=== PATIENT | female | born 1945 | race Caucasian/White ===

== ENCOUNTER 2018-11-22 13:29 | Inpatient (IN) ==
[2018-11-22] MEDS ORDERED: Ondansetron ODT 4 MG TAB.RAPDIS SL ONE (13:34)
[2018-11-22] MEDS ORDERED: *HR* FentaNYL (PF) 100 MCG/2 ML VIAL IVP ONE (13:35)
--- NOTE | 2018-11-22 13:41 | Emergency Department Note ---
Disposition Clinical Impression: Hypercalcemia Abdominal pain Qualifiers: Abdominal location: unspecified location Qualified Code(s): R10.9 - Unspecified abdominal pain Chest pain Qualifiers: Chest pain type: unspecified Qualified Code(s): R07.9 - Chest pain, unspecified Disposition: Admitted As Inpatient Condition: Good Referrals: Vicky Prajapati MD [Primary Care Provider] - Time of Disposition: 15:37 General Adult HPI - General Stated complaint: Chest Pain / Nausea / Back Pain Time Seen by Provider: 11/22/18 13:31 Source: patient, family Mode of arrival: wheelchair Limitations: no limitations Nursing Notes Reviewed: Yes Vital Signs Reviewed: Yes - History of Present Illness HPI Narrative: 73-year-old female with significant past medical history of hypertension, hyperlipidemia and diabetes presenting to the emergency department chief complaint of nausea 3 days. Patient states for the past 3 days she has had sev ere nausea and some right upper and left upper quadrant abdominal pain. Patient has also had some mid substernal chest pressure. No radiation. No history of cardiac disease. No anticoagulation use. Constant pain. - Related Data Home Medications Medication Instructions Recorded Confirmed Duloxetine HCl 20 mg PO BID 11/22/18 11/22/18 HYDROcodone/Acet 5/325 mg [[place] 1 tab PO Q6H PRN 11/22/18 11/22/18 5-325 mg] NIFEdipine [Nifedipine ER] 30 mg PO DAILY 11/22/18 11/22/18 Olmesartan Medoxomil 40 mg PO DAILY 11/22/18 11/22/18 Probenecid [Benemid] 500 mg PO DAILY 11/22/18 11/22/18 Triamterene/HCTZ 37.5/25mg 1 each PO DAILY 11/22/18 11/22/18 [Dyazide] Allergies Allergy/AdvReac Type Severity Reaction Status Date / Time Aliskiren [From Tekturna] Allergy See Verified 02/03/15 10:20 Comments amlodipine [From Norvasc] Allergy Cough Verified 02/03/15 10:20 atorvastatin [From Lipitor] Allergy Weakness Verified 02/03/15 10:20 Hydralazine Allergy Fatigued Verified 02/03/15 10:20 Labetalol Allergy See Verified 02/03/15 10:20 Comments nebivolol [From Bystolic] Allergy See Verified 02/03/15 10:20 Comments simvastatin [From Zocor] Allergy Weakness Verified 02/03/15 10:20 allopurinol AdvReac See Verified 02/03/15 10:20 Comments doxazosin AdvReac Congested Verified 02/03/15 10:20 lisinopril AdvReac Cough Verified 02/03/15 10:20 metoprolol [From Toprol XL] AdvReac See Verified 02/03/15 10:20 Comments minoxidil AdvReac See Verified 02/03/15 10:20 Comments All systems ED: reviewed and negative except as stated. Constitutional: Denies: fever Eyes: Reports: as per HPI ENT ED: Reports: as per HPI Cardiovascular: Reports: chest pain Respiratory: Denies: dyspnea Gastrointestinal: Reports: abdominal pain, nausea Genitourinary: Reports: as per HPI Musculoskeletal: Reports: as per HPI Integumentary: Reports: as per HPI Neurological: Reports: as per HPI Psychiatric: Reports: as per HPI Endocrine: Reports: as per HPI Hematological/Lymphatic: Reports: as per HPI Allergic/Immunologic: Reports: as per HPI Past Medical History - Past Medical History Attestation: Yes The following information was validated with the patient. 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 Absent: respiratory distress, wheezes - Cardiovascular Cardiovascular exam: Present: regular rate, normal rhythm, normal heart sounds - Abdominal Exam Abdominal exam: Present: soft, tenderness. Absent: distention, guarding, rebound Abdominal tenderness: Present: RUQ, LUQ, moderate - Extremities Exam Extremities exam: Present: full ROM - Neurological Exam Neurological exam: Present: alert, oriented X3 - Psychiatric Psychiatric exam: Present: normal affect - Skin Skin exam: Present: warm Course Course Narrative: 73-year-old female presenting for nausea and chest pressure. In the room she is alert oriented 3. Hypertensive but hemodynamically stable. Physical exam is significant for right upper and left upper quadrant abdominal pain. Concern for cardiac versus intra-abdominal pathology at this time. We will obtain laboratory analysis, troponin, EKG and CT of the abdomen and pelvis. Disposition most likely admission the pending results. Patient agrees with this plan. - Reevaluation(s) Reevaluation #1: Patient laboratory analysis significant for hypercalcemia 13. Patient does state she takes 2-3 Tums per day but otherwise no calcium supplementation. CT of abdomen and pelvis negative. Chest x-ray negative. At this time will plan to admit the patient for chest pain rule out and further evaluation for her hypercalcemia. Patient remains alert and oriented 3 and hemodynamically stabl e. Patient agrees with this plan. I spoke to the hospitalist instructional manager Dr. Bingham who agrees to accept the patient at this time. He recommends 40 mEq of oral potassium. Vital Signs Temperature 98.6 F 11/22/18 13:34 Pulse Rate 96 11/22/18 13:34 Respiratory Rate 25 11/22/18 13:34 Blood Pressure 210/116 11/22/18 13:34 O2 Sat by Pulse Oximetry 96 11/22/18 13:34 Temperature 98.6 F 11/22/18 13:34 Pulse Rate 78 11/22/18 14:54 Respiratory Rate 18 11/22/18 14:54 Blood Pressure 160/103 11/22/18 14:54 O2 Sat by Pulse Oximetry 95 11/22/18 14:54 Oxygen Delivery Oxygen Delivery Room Air Medical Decision Making - Lab Data Result diagrams: 11/22/18 13:45 11/22/18 13:45 Lab Results 11/22/18 11/22/18 Range/Units 13:45 13:45 WBC 8.3 (4.3-11.1) K/mcL RBC 5.17 H (3.82-4.97) M/mcL Hgb 14.8 (11.5-15.4) g/dL Hct 43.7 (35.3-44.9) % MCV 84.5 (83.0-100.0) fL MCH 28.6 (28.0-33.3) pg MCHC 33.9 (31.6-35.5) g/dL RDW 12.5 (11.5-14.5) % Plt Count 298 (140-400) K/mcL MPV 8.8 L (9.4-12.4) fL Immature Gran % 0.5 (0-4) % Seg Neutrophils % 72.9 % Lymphocytes % 17.9 % Monocytes % 8.2 % Eosinophils % 0.1 % Basophils % 0.4 % Neutrophils # 6.1 (1.6-8.9) K/mcL Lymphocytes # 1.5 (0.6-4.6) K/mcL Monocytes # 0.7 (0.0-1.3) K/mcL Eosinophils # 0.0 (0.0-0.6) K/mcL Basophils # 0.0 (0.0-0.2) K/mcL Sodium 136 (136-145) mEq/L Potassium 3.3 L (3.5-5.1) mEq/L Chloride 95 L (98-107) mEq/L Carbon Dioxide 30 H (23-29) mEq/L BUN 19 (8-23) mg/dL Creatinine 1.20 (0.60-1.20) mg/dL Est GFR ( Amer) 54 L (> 60) Est GFR (Non-Af Amer) 44 L (> 60) BUN/Creatinine Ratio 16 (6-26) Glucose 158 H (70-105) mg/dL Calculated Osmolality 288 (280-300) Calcium 13.0 H* (8.6-10.3) mg/dL Total Bilirubin 0.5 (0.3-1.0) mg/dL Direct Bilirubin 0.1 (0.0-0.2) mg/dL Indirect Bilirubin 0.4 (0.0-1.2) mg/dL AST 13 (13-39) Units/L ALT 10 (7-52) Units/L Alkaline Phosphatase 66 (34-104) Units/L Troponin I < 0.03 (< 0.04) ng/mL Serum Total Protein 7.9 (6.4-8.9) g/dL Albumin 4.7 (3.5-5.7) g/dL Globulin 3.2 (2.4-3.5) g/dL Albumin/Globulin Ratio 1.5 (1.1-2.2) Lipase 38 (11-82) Units/L - EKG Data EKG #1 EKG attestation: Yes I reviewed and interpreted this EKG. EKG results narrative: Sinus tachycardia. 101 beats per minute. VA interval 185, QRS 114, QTC 500. Compared to previous EKG completed on 05/31/2011 new sinus tachycardia noted Heart Score - Score History: Slightly Suspicious EKG: Normal Age: Greater than 65 Risk Factors: Equal/Greater than 3 risk factor or history of atherosclerotic disease Troponin: Less than normal limit HEART Score Total: 4
[2018-11-22 14:02] LABS: Basophils % 0.4 %; Eosinophils % 0.1 %; Hematocrit 43.7 % (35.3-44.9); Hemoglobin 14.8 g/dL (11.5-15.4); Immature Granulocytes % 0.5 % (0-4); Lymphocytes # 1.5 K/mcL (0.6-4.6); Lymphocytes % 17.9 %; Mean Corpuscular HGB Conc 33.9 g/dL (31.6-35.5); Mean Corpuscular Hemoglobin 28.6 pg (28.0-33.3); Mean Corpuscular Volume 84.5 fL (83.0-100.0); Mean Platelet Volume 8.8 fL (9.4-12.4); Monocytes # 0.7 K/mcL (0.0-1.3); Monocytes % 8.2 %; Neutrophils # 6.1 K/mcL (1.6-8.9); Platelet Count 298 K/mcL (140-400); Red Blood Count 5.17 M/mcL (3.82-4.97); Red Cell Distribution Width 12.5 % (11.5-14.5); Segmented Neutrophils % 72.9 %; White Blood Count 8.3 K/mcL (4.3-11.1)
[2018-11-22 14:26] LABS: BUN/Creatinine Ratio 16 (6-26); Blood Urea Nitrogen 19 mg/dL (8-23); Carbon Dioxide 30 mEq/L (23-29); Chloride 95 mEq/L (98-107); Glucose 158 mg/dL (70-105); Potassium 3.3 mEq/L (3.5-5.1); Sodium 136 mEq/L (136-145); eGFR For African Americans 54 (> 60); eGFR For Non-African Americans 44 (> 60)
[2018-11-22 14:27] LABS: Alanine Aminotransferase 10 Units/L (7-52); Albumin 4.7 g/dL (3.5-5.7); Albumin/Globulin Ratio 1.5 (1.1-2.2); Alkaline Phosphatase 66 Units/L (34-104); Aspartate Amino Transferase 13 Units/L (13-39); Bilirubin,Direct 0.1 mg/dL (0.0-0.2); Bilirubin,Indirect 0.4 mg/dL (0.0-1.2); Bilirubin,Total 0.5 mg/dL (0.3-1.0); Globulin 3.2 g/dL (2.4-3.5); Lipase 38 Units/L (11-82); Osmolality,Calculated 288 (280-300); Total Protein 7.9 g/dL (6.4-8.9); Troponin I < 0.03 ng/mL (< 0.04)
[2018-11-22] MEDS ORDERED: 0.9 % Sodium Chloride 1,000 ML IVC ONE (14:28)
[2018-11-22] MEDS ORDERED: Aspirin 325 MG TABLET PO ONE (14:34)
--- NOTE | 2018-11-22 15:16 | Emergency Department Note ---
Disposition Clinical Impression: Hypercalcemia Abdominal pain Qualifiers: Abdominal location: unspecified location Qualified Code(s): R10.9 - Unspecified abdominal pain Chest pain Qualifiers: Chest pain type: unspecified Qualified Code(s): R07.9 - Chest pain, unspecified Disposition: Admitted As Inpatient Condition: Good Referrals: Vicky Prajapati MD [Primary Care Provider] - Time of Disposition: 15:25 General Adult HPI - General Chief complaint: ED Abdominal Pain Stated complaint: Chest Pain / Nausea / Back Pain Time Seen by Provider: 11/22/18 13:31 Source: patient, family Mode of arrival: wheelchair Limitations: no limitations Nursing Notes Reviewed: Yes Vital Signs Reviewed: Yes - History of Present Illness Pain Scale: 7 - Related Data Home Medications Medication Instructions Recorded Confirmed Duloxetine HCl 20 mg PO BID 11/22/18 11/22/18 HYDROcodone/Acet 5/325 mg [[place] 1 tab PO Q6H PRN 11/22/18 11/22/18 5-325 mg] NIFEdipine [Nifedipine ER] 30 mg PO DAILY 11/22/18 11/22/18 Olmesartan Medoxomil 40 mg PO DAILY 11/22/18 11/22/18 Probenecid [Benemid] 500 mg PO DAILY 11/22/18 11/22/18 Triamterene/HCTZ 37.5/25mg 1 each PO DAILY 11/22/18 11/22/18 [Dyazide] Allergies Allergy/AdvReac Type Severity Reaction Status Date / Time Aliskiren [From Tekturna] Allergy See Verified 02/03/15 10:20 Comments amlodipine [From Norvasc] Allergy Cough Verified 02/03/15 10:20 atorvastatin [From Lipitor] Allergy Weakness Verified 02/03/15 10:20 Hydralazine Allergy Fatigued Verified 02/03/15 10:20 Labetalol Allergy See Verified 02/03/15 10:20 Comments nebivolol [From Bystolic] Allergy See Verified 02/03/15 10:20 Comments simvastatin [From Zocor] Allergy Weakness Verified 02/03/15 10:20 allopurinol AdvReac See Verified 02/03/15 10:20 Comments doxazosin AdvReac Congested Verified 02/03/15 10:20 lisinopril AdvReac Cough Verified 11/17/15 10:20 metoprolol [From Toprol XL] AdvReac See Verified 02/03/15 10:20 Comments minoxidil AdvReac See Verified 02/03/15 10:20 Comments Constitutional: Denies: fever Eyes: Reports: as per HPI ENT ED: Reports: as per HPI Cardiovascular: Reports: chest pain Respiratory: Denies: dyspnea Gastrointestinal: Reports: abdominal pain, nausea Genitourinary: Reports: as per HPI Musculoskeletal: Reports: as per HPI Integumentary: Reports: as per HPI Neurological: Reports: as per HPI Psychiatric: Reports: as per HPI Endocrine: Reports: as per HPI Hematological/Lymphatic: Reports: as per HPI Allergic/Immunologic: Reports: as per HPI Past Medical History - Past Medical History Medical history: Reports: hyperlipidemia, hypertension Surgical history: Reports: no surgical history Psychiatric history: Reports: no psych history 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 history - Social History Smoking Status: Never smoker Alcohol use: Reports: none Drug use: Reports: none Physical Exam - General Limitations: no limitations General appearance: alert, in no apparent distress Course Vital Signs Temperature 98.6 F 11/22/18 13:34 Pulse Rate 96 11/22/18 13:34 Respiratory Rate 25 11/22/18 13:34 Blood Pressure 210/116 11/22/18 13:34 O2 Sat by Pulse Oximetry 96 11/22/18 13:34 Temperature 98.6 F 11/22/18 13:34 Pulse Rate 78 11/22/18 14:54 Respiratory Rate 18 11/22/18 14:54 Blood Pressure 160/103 11/22/18 14:54 O2 Sat by Pulse Oximetry 95 11/22/18 14:54 Oxygen Delivery Oxygen Delivery Room Air Medical Decision Making - Lab Data Result diagrams: 11/22/18 13:45 11/22/18 13:45 Lab Results 11/22/18 11/22/18 Range/Units 13:45 13:45 WBC 8.3 (4.3-11.1) K/mcL RBC 5.17 H (3.82-4.97) M/mcL Hgb 14.8 (11.5-15.4) g/dL Hct 43.7 (35.3-44.9) % MCV 84.5 (83.0-100.0) fL MCH 28.6 (28.0-33.3) pg MCHC 33.9 (31.6-35.5) g/dL RDW 12.5 (11.5-14.5) % Plt Count 298 (140-400) K/mcL MPV 8.8 L (9.4-12.4) fL Immature Gran % 0.5 (0-4) % Seg Neutrophils % 72.9 % Lymphocytes % 17.9 % Monocytes % 8.2 % Eosinophils % 0.1 % Basophils % 0.4 % Neutrophils # 6.1 (1.6-8.9) K/mcL Lymphocytes # 1.5 (0.6-4.6) K/mcL Monocytes # 0.7 (0.0-1.3) K/mcL Eosinophils # 0.0 (0.0-0.6) K/mcL Basophils # 0.0 (0.0-0.2) K/mcL Sodium 136 (136-145) mEq/L Potassium 3.3 L (3.5-5.1) mEq/L Chloride 95 L (98-107) mEq/L Carbon Dioxide 30 H (23-29) mEq/L BUN 19 (8-23) mg/dL Creatinine 1.20 (0.60-1.20) mg/dL Est GFR ( Amer) 54 L (> 60) Est GFR (Non-Af Amer) 44 L (> 60) BUN/Creatinine Ratio 16 (6-26) Glucose 158 H (70-105) mg/dL Calculated Osmolality 288 (280-300) Calcium 13.0 H* (8.6-10.3) mg/dL Total Bilirubin 0.5 (0.3-1.0) mg/dL Direct Bilirubin 0.1 (0.0-0.2) mg/dL Indirect Bilirubin 0.4 (0.0-1.2) mg/dL AST 13 (13-39) Units/L ALT 10 (7-52) Units/L Alkaline Phosphatase 66 (34-104) Units/L Troponin I < 0.03 (< 0.04) ng/mL Serum Total Protein 7.9 (6.4-8.9) g/dL Albumin 4.7 (3.5-5.7) g/dL Globulin 3.2 (2.4-3.5) g/dL Albumin/Globulin Ratio 1.5 (1.1-2.2) Lipase 38 (11-82) Units/L Attestation Statement - Attestation Attestation: I examined this patient and my medical decision-making was reviewed with the Resident Physician. I agree with the documented findings, disposition and treatment plan as described except to the extent set forth below. Patient presents to the ED with a chief complaint of pain between her shoulder blades. Nausea. Some chest discomfort. The symptoms of been present for 5 day s. Some pain in her right upper abdomen. No traumatic injury. On examination the patient is awake and alert sitting up in bed in no acute distress. She has no tenderness over her back. Her lungs are clear. Her heart is regular rate and rhythm. Her abdomen is soft with some right upper quadrant tenderness without guarding. Plan. Cardiac workup with CT abdomen pelvis. CT reviewed. No acute process. Patient has hypercalcemia. She is admitted for further workup and treatment of this along with further workup of her chest pain. Patient was given IV hydration. Abdomen/Pelvis CT 11/22/18 13:34 IMPRESSION: 1. No acute finding in the abdomen or pelvis to account for patient's abdominal pain. 2. Sigmoid diverticulosis without evidence of diverticulitis. 3. No evidence of obstructive uropathy. 4. Hepatic steatosis. D/ / 11/22/2018 14:22:06 Des Collins MD / marielos Interpreting Provider: Des Collins MD Chest X-Ray 11/22/18 13:35 IMPRESSION: Linear atelectasis or scarring in the left lung base. No other acute cardiopulmonary findings. D/ / Ramya Knight MD / Ramya Knight MD Interpreting Provider: Ramya Knight MD
[2018-11-22] MEDS: Potassium Chloride Elixir 20 MEQ/15 ML UDC PO ONE ×2 (16:03→16:06)
[2018-11-22] MEDS ORDERED: Naloxone 0.4 MG/ML INJ IVP PRN (16:26)
--- NOTE | 2018-11-22 16:26 | Electrocardiograph Report ---
[address] [address] Test Date: 2018-11-22 Pat Name: Geoffrey Chen Department: EXAM16 Room: 3B Gender: F Glassie: : 1945 Requested By: Katlyn Munoz Order Number: [id number] Reading MD: Jese Dee Measurements Intervals [place] Rate: 101 P: 53 [place]: 185 QRS: -80 QRSD: 114 T: 20 QT: 387 QTc: 500 Interpretive Statements Sinus tachycardia Consider right atrial enlargement Borderline IVCD Electronically Signed On 11-22-2018 16:25:09 EDT by Jese Dee
--- NOTE | 2018-11-22 16:40 | Internal Med History&Physical ---
Date of Encounter: 11/22/18 Time of Encounter: 16:45 Internal Medicine - H&P: HPI Chief complaint: Pain in the upper back Admitted From: Emergency Dept Plans for Post Hospital Care: Home History of present illness: Ms. Chen is a 73 year old female with the [facility] signifcnat for the hypertension , presented to the [facility] with the complaints of pain in the upper back. Pt has been having pain in the joints for almost 1 year. She has been to welding machine operator gas metal arc, diagnosed with gout currently on probenecid. Now she has been h aving pain between her shoulder blades for last 1 day, progressively worseinng, no aggravating or relieving factotrs. Does any chest pain, shortness of breath. Denies fever, chills, rigors. Denies cough, phlegm production. Denies dysuria, hematuria, nocturia. Denies any history of kidney stones. Denies any history of cancer. Denied any history of previous autoimmune disease. she mentioned that she had workup done by a welding machine operator gas metal arc and it was negative for any autoimmune disease. Denies taking any over the counter calcium other than Tums as needed for the abdominal pain. In the emergency department patient was hemodynamically stable. EKG was negative for an ischemic changes. Laboratory workup showed calcium of 13. Patient was given IV fluid bolus and was admitted for further management. Of note, patient troponin levels are normal. Past Med Surg Social Fam HX - Past Medical History Medical history: hyperlipidemia, hypertension Psychiatric history: no psych history - Past Surgical History Surgical History: no surgical history - Social History Smoking Status: Never smoker Alcohol use: none Drug use: none - Family History Father Living Status: Hx Family Cancer: Yes - Additional Family History Additional family history: Brother of pancreatic CA Internal Medicine - H&P: Meds Duloxetine HCl 20 mg PO BID 11/22/18 [History] HYDROcodone/Acet 5/325 mg [[place] 5-325 mg] 1 tab PO Q6H PRN 11/22/18 [History] NIFEdipine [Nifedipine ER] 30 mg PO DAILY 11/22/18 [History] Olmesartan Medoxomil 40 mg PO DAILY 11/22/18 [History] Probenecid [Benemid] 500 mg PO DAILY 11/22/18 [History] Triamterene/HCTZ 37.5/25mg [Dyazide] 1 each PO DAILY 11/22/18 [History] Allergy/AdvReac Type Severity Reaction Status Date / Time Aliskiren [From Tekturna] Allergy See Verified 02/03/15 10:20 Comments amlodipine [From Norvasc] Allergy Cough Verified 02/03/15 10:20 atorvastatin [From Lipitor] Allergy Weakness Verified 02/03/15 10:20 Hydralazine Allergy Fatigued Verified 02/03/15 10:20 Labetalol Allergy See Verified 02/03/15 10:20 Comments nebivolol [From Bystolic] Allergy See Verified 02/03/15 10:20 Comments simvastatin [From Zocor] Allergy Weakness Verified 02/03/15 10:20 allopurinol AdvReac See Verified 02/03/15 10:20 Comments doxazosin AdvReac Congested Verified 02/03/15 10:20 lisinopril AdvReac Cough Verified 02/03/15 10:20 metoprolol [From Toprol XL] AdvReac See Verified 02/03/15 10:20 Comments minoxidil AdvReac See Verified 02/03/15 10:20 Comments All Systems PM: A 10-system review of systems was performed and is negative for pertinent findings except as documented above in the HPI. Review of systems: General: Negative for fever, chills, rigors. Positive for generazlied weakness HEENT: Negative for neck swelling, discharge from nose, discharge from ears. EYES: Negative for any discharge from the eyes. Respiratory: Negative for shortness of breath, orthopnea, exertional dyspnea. Cardiovascular: Negative for chest pain, shortness of breath, orthopnea, PND. Gastrintestical: Negative for diarrhea, constipation, blood in stools. Genitourinary: Negative for dysuria, hematuria, nocturia, increased frequency of urine. Hematological: Negative for blood loss, negative for active cancer. Neurological: Negative for headache, dizziness, blurry vision, loss os power and sensations. Endocrinology: Negative for constipation, polyuria, polydipsia. Integumentary: Negative for rash, wounds, ulcers. Psychiatric: Negative for anxiety or depression. - Constitutional Vitals: Temp Pulse Resp BP Pulse Ox 98.6 F 78 18 190/76 95 11/22/18 13:34 11/22/18 14:54 11/22/18 16:03 11/22/18 16:03 11/22/18 14:54 Exam: General: Alert and oriented, no physical distress, able to follow commands. HEENT: No thyromegaly, no lymphadenopathy, no discharge. Eyes: No discharge. Normal conjuctiva, no icterus Respiratory: Normal vesicular breathing, no added sounds, breathing equal in both sides. CVS: Normal heart sounds, no murmurs, regular rhthm, no edema Extremities: No peripheral edema, peripheral pulses intact. Lymph nodes: No lymphadenopathy Gastrointestinal: Soft, nontender abdomen, normal abdominal sounds. No distent ion noted. Genitourinary: No paravertebral tenderness. Skin: No rash, ulcers or wound. Neurological: Alert and oriented. No focal deficits. Cranial nerves II-XII intact. Internal Med - H&P Results - Labs CBC & Chem 7: 11/22/18 13:45 11/22/18 13:45 Labs: Short CBC 11/22/18 Range/Units 13:45 WBC 8.3 (4.3-11.1) K/mcL Hgb 14.8 (11.5-15.4) g/dL Hct 43.7 (35.3-44.9) % Plt Count 298 (140-400) K/mcL Neutrophils # 6.1 (1.6-8.9) K/mcL BMP 11/22/18 13:45 Sodium 136 Potassium 3.3 L Chloride 95 L Carbon Dioxide 30 H BUN 19 Creatinine 1.20 Glucose 158 H Calcium 13.0 H* Cardiac Enzymes 11/22/18 Range/Units 13:45 Troponin I < 0.03 (< 0.04) ng/mL Liver Function 11/22/18 Range/Units 13:45 Total Bilirubin 0.5 (0.3-1.0) mg/dL Direct Bilirubin 0.1 (0.0-0.2) mg/dL AST 13 (13-39) Units/L ALT 10 (7-52) Units/L Alkaline Phosphatase 66 (34-104) Units/L Albumin 4.7 (3.5-5.7) g/dL - Impressions ITS Impressions Abdomen/Pelvis CT 11/22/18 13:34 IMPRESSION: 1. No acute finding in the abdomen or pelvis to account for patient's abdominal pain. 2. Sigmoid diverticulosis without evidence of diverticulitis. 3. No evidence of obstructive uropathy. 4. Hepatic steatosis. D/ / 11/22/2018 14:22:06 Des Collins MD / [email or web address] Interpreting Provider: Des Collins MD Chest X-Ray 11/22/18 13:35 IMPRESSION: Linear atelectasis or scarring in the left lung base. No other acute cardiopulmonary findings. D/ / Ramya Knight MD / Ramya Knight MD Interpreting Provider: Ramya Knight MD - Assessment and Plan (1) Hypercalcemia Current Visit: Yes Status: Acute Assessment and plan: Etiology unclear. On the previous review of labs, patient calcium was elevated but was in 10s Current calcium is 13. She was given 1 L of IV fluid bolus in the emergency department in Continued the patient on IV fluids. Repeat Calcium levels Check parathyroid hormone levels, vitamin D levels, uric acid, SPEP, hearing calcium, inflammatory markers. We will check CT scan of the chest to rule out any malignancy considering very high calcium levels. (2) Hypokalemia Current Visit: Yes Status: Acute Assessment and plan: Potassium of 3.3. Repleted. Recheck levels tomorrow. (3) Abdominal pain Current Visit: Yes Status: Acute Assessment and plan: Etiology unclear. CT scan of the abdomen was done which was negative for any abdominal mass or kidney stones. Could be related to hypercalcemia Continue to monitor. Qualifiers: Abdominal location: generalized Qualified Code(s): R10.84 - Generalized abdominal pain (4) Chest pain Current Visit: Yes Status: Acute Assessment and plan: Unlikely to be cardiac in nature. Troponin levels were normal. EKG negative. Repeat troponin level to rule out ACS. echo ordered. Qualifiers: Chest pain type: unspecified Qualified Code(s): R07.9 - Chest pain, unspecified (5) Hypertension Current Visit: Yes Status: Acute Assessment and plan: History of essential hypertension currently on medications. Resume home medications. Ordered PO clondiien as needed for blood pressure above 180 as the patient blood pressure has been high in the hospital. Could be related to hypercalcemia. Qualifiers: Hypertension type: essential hypertension Qualified Code(s): I10 - Essential (primary) hypertension (6) DVT prophylaxis Current Visit: Yes Status: Acute Assessment and plan: SUbq heparin (7) Gout Current Visit: Yes Status: Acute Assessment and plan: Hx of gout Check uric acid levesl Cont probenecid Qualifiers: Gout site: unspecified site Gout etiology: unspecified cause Chronicity: chronic Presence of tophus: without tophus Qualified Code(s): M1A.9XX0 - Chronic gout, unspecified, without tophus (tophi) - Time Spent With Patient Total time spent is greater than 50% in coordination of care (as documented) at patient's floor/unit and/or counseling patient:
[2018-11-22] MEDS: 0.9 % Sodium Chloride 1,000 ML IVC SCH (17:16)
[2018-11-22 17:52] LABS: VBG Ionized Calcium 1.47 mmol/L (1.15-1.35)
[2018-11-22 18:01] LABS: Troponin I 0.03 ng/mL (< 0.04)
[2018-11-22] MEDS: *HR* Heparin 5,000 UNIT/ML VIAL SQ SCH (18:51)
[2018-11-22] MEDS: *HR* HYDROcodone/Acet 5/325 mg TABLET PO PRN (18:55)
[2018-11-22 22:05] LABS: Bilirubin,Urine Negative (Negative); Blood,Urine Negative (Negative); Clarity,Urine Clear (Clear); Color,Urine Yellow (Yellow); Glucose,Urine (UA) Normal (Normal); Ketones,Urine Negative (Negative); Leukocyte Esterase,Urine Small (Negative); Nitrite,Urine Negative (Negative); PH,Urine 6.5 pH Units (5.0-8.0); Protein,Urine Negative (Neg-Trace); Specific Gravity,Urine 1.016 (1.010-1.025); Urobilinogen,Urine Normal (Normal)
[2018-11-22 22:08] LABS: Bacteria,Urine None Seen per hpf (None-Few); Hyaline Casts,Urine None Seen per lpf (None-Few); Squamous Epithelial Cell,Urine Many per lpf (None-Few)
[2018-11-23] MEDS: *HR* HYDROcodone/Acet 5/325 mg TABLET PO PRN ×4 (01:18→21:02)
[2018-11-23 04:53] LABS: Basophils % 0.6 %; Eosinophils % 0.6 %; Hematocrit 35.1 % (35.3-44.9); Hemoglobin 11.9 g/dL (11.5-15.4); Immature Granulocytes % 0.4 % (0-4); Lymphocytes # 1.6 K/mcL (0.6-4.6); Lymphocytes % 33.5 %; Mean Corpuscular HGB Conc 33.9 g/dL (31.6-35.5); Mean Corpuscular Volume 85.6 fL (83.0-100.0); Monocytes # 0.5 K/mcL (0.0-1.3); Monocytes % 10.6 %; Neutrophils # 2.6 K/mcL (1.6-8.9); Platelet Count 224 K/mcL (140-400); Red Cell Distribution Width 12.6 % (11.5-14.5); Segmented Neutrophils % 54.3 %; White Blood Count 4.8 K/mcL (4.3-11.1)
[2018-11-23 05:13] LABS: BUN/Creatinine Ratio 16 (6-26); Blood Urea Nitrogen 16 mg/dL (8-23); Calcium 10.8 mg/dL (8.6-10.3); Carbon Dioxide 28 mEq/L (23-29); Chloride 103 mEq/L (98-107); Glucose 98 mg/dL (70-105); Magnesium 1.2 mg/dL (1.6-2.6); Osmolality,Calculated 287 (280-300); Potassium 3.5 mEq/L (3.5-5.1); Sodium 138 mEq/L (136-145); eGFR For African Americans > 60 (> 60); eGFR For Non-African Americans 55 (> 60)
[2018-11-23] MEDS: 0.9 % Sodium Chloride 1,000 ML IVC SCH ×2 (07:01→17:22)
[2018-11-23] MEDS: *HR* Heparin 5,000 UNIT/ML VIAL SQ SCH ×2 (07:34→16:08)
[2018-11-23] MEDS: NIFEdipine XL (24 HR) 30 MG TAB.ER.24 PO SCH (07:35)
[2018-11-23] MEDS: Ondansetron 4 MG/2 ML VIAL IVP PRN (09:33)
--- NOTE | 2018-11-23 10:06 | Internal Med Progress Note ---
Hospitalist Progress Note - Encounter Date of Encounter: 11/23/18 Time of Encounter: 09:50 - Subjective Interval History: Patient seen at bedside. Complaining of mild nausea. Also complaining of constipation, although had a bowel movement in the morning. Denies any chest pain or shortness of breath. Denies fever, chills, rigors. Discussed with her and the that her calcium levels are improving. Discussed echocardiographic findings and mentioned that it is worthwhile to get the stress test. Agreeable to getting a stress test. - Exam Vitals: Temp Pulse Resp BP Pulse Ox 98.8 F 58 20 178/83 96 11/23/18 07:35 11/23/18 07:35 11/23/18 07:35 11/23/18 07:35 11/23/18 07:35 Exam: General: Alert and oriented, no physical distress, able to follow commands. HEENT: No thyromegaly, no lymphadenopathy, no discharge. Eyes: No discharge. Normal conjuctiva, no icterus Respiratory: Normal vesicular breathing, no added sounds, breathing equal in both sides. CVS: Normal heart sounds, no murmurs, regular rhthm, no edema Extremities: No peripheral edema, peripheral pulses intact. Lymph nodes: No lymphadenopathy Gastrointestinal: Soft, nontender abdomen, normal abdominal sounds. No distention noted. Genitourinary: No paravertebral tenderness. Skin: No rash, ulcers or wound. Neurological: Alert and oriented. No focal deficits. Cranial nerves II-XII intact. - Assessment and Plan (1) Hypercalcemia Current Visit: Yes Status: Acute Assessment and Plan: Etiology unclear. On the previous review of labs, patient calcium was elevated but was in 10s Calcium at presentation was 13, today it is 10.8. currently on IV fluids at 100 mL per hour. Parathyroid hormone level 13. Vitamin D level of 45. TSH normal. SPEP results pending. CT scan of the chest is normal. Could be related to ingestion of vitamin D?? Other possibility could be Use of HCTZ WIll cotninue the IV fluids at reduced rate Will hold vitamin D WIll dc HCTZ on discharge Repat levels on outpt basis (2) Hypokalemia Current Visit: Yes Status: Acute Assessment and Plan: REsolved Potassium normal today (3) Abdominal pain Current Visit: Yes Status: Acute Assessment and Plan: Etiology unclear. CT scan of the abdomen was done which was negative for any abdominal mass or kidney stones. Could be related to hypercalcemia Miralax for constipation Zofran for the nausea (4) Chest pain Current Visit: Yes Status: Acute Assessment and Plan: Etiology unlcear Troponin levels were normal x 2 EKG negative. Echocardiogram showed normal ejection fraction, asymmetric hypertrophy of the basal septum, atypical septal motion consistent with bundle branch block. Order stress test to rule out CAD. Nothing by mouth after midnight. (5) Hypertension Current Visit: Yes Status: Acute Assessment and Plan: History of essential hypertension currently on medications. Resume home medications. Ordered PO clondiien as needed for blood pressure above 180 as the patient blood pressure has been high in the hospital. Could be related to hypercalcemia. (6) DVT prophylaxis Current Visit: Yes Status: Acute Assessment and Plan: SUbq heparin (7) Gout Current Visit: Yes Status: Acute Assessment and Plan: Hx of gout Check uric acid levesl Cont probenecid (8) Hypomagnesemia Current Visit: Yes Status: Acute Assessment and Plan: MAg of 1.2 Repleted Repeat leves tomorrrow - Time Spent with Patient Total time spent is greater than 50% in coordination of care (as documented) at patient's floor/unit and/or counseling patient: Internal Medicine: Result - Labs CBC & Chem 7: 11/23/18 04:30 11/23/18 04:30 Labs: Short CBC 11/22/18 11/23/18 Range/Units 13:45 04:30 WBC 8.3 4.8 (4.3-11.1) K/mcL Hgb 14.8 11.9 D (11.5-15.4) g/dL Hct 43.7 35.1 L (35.3-44.9) % Plt Count 298 224 (140-400) K/mcL Neutrophils # 6.1 2.6 (1.6-8.9) K/mcL BMP 11/22/18 11/22/18 11/23/18 13:45 17:25 04:30 Sodium 136 138 Potassium 3.3 L 3.5 Chloride 95 L 103 Carbon Dioxide 30 H 28 BUN 19 16 Creatinine 1.20 0.99 Glucose 158 H 98 Calcium 13.0 H* 12.0 H 10.8 H Cardiac Enzymes 11/22/18 11/22/18 Range/Units 13:45 17:25 Troponin I < 0.03 0.03 (< 0.04) ng/mL Liver Function 11/22/18 Range/Units 13:45 Total Bilirubin 0.5 (0.3-1.0) mg/dL Direct Bilirubin 0.1 (0.0-0.2) mg/dL AST 13 (13-39) Units/L ALT 10 (7-52) Units/L Alkaline Phosphatase 66 (34-104) Units/L Albumin 4.7 (3.5-5.7) g/dL Urine 11/22/18 Range/Units 21:53 Urine Color Yellow (Yellow) Urine Clarity Clear (Clear) Urine pH 6.5 (5.0-8.0) pH Units Ur Specific [place] 1.016 (1.010-1.025) Urine Protein Negative (Neg-Trace) mg/dL Urine Glucose (UA) Normal (Normal) mg/dL - Impressions Impressions Abdomen/Pelvis CT 11/22/18 13:34 IMPRESSION: 1. No acute finding in the abdomen or pelvis to account for patient's abdominal pain. 2. Sigmoid diverticulosis without evidence of diverticulitis. 3. No evidence of obstructive uropathy. 4. Hepatic steatosis. D/ / 11/22/2018 14:22:06 Des Collins MD / marielos Interpreting Provider: Des Collins MD Chest X-Ray 11/22/18 13:35 IMPRESSION: Linear atelectasis or scarring in the left lung base. No other acute cardiopulmonary findings. D/ / Ramya Knight MD / Ramya Knight MD Interpreting Provider: Ramya Knight MD Echocardiogram 11/22/18 16:30 Impressions: LVEF 60-65%. Normal LV chamber size and function. Mild asymmetric hypertrophy of the basal septum. Mild left ventricular diastolic dysfunction. Atypical septal motion consistent with bundle branch block. Normal right ventricular structure and function. No evidence of pulmonary hypertension. No significant valvular dysfunction. Left Ventricular Wall Motion: Rest Echo Findings All wall segments showed normal motion. Findings: Study Quality * Technically adequate exam. ECG Findings * Sinus rhythm with BBB. Left Ventricle * LVEF 60-65%. * Normal LV chamber size and function. * Mild asymmetric hypertrophy of the basal septum. * Mild left ventricular diastolic dysfunction. * Atypical septal motion consistent with bundle branch block. Right Ventricle * Normal right ventricular structure and function. Left Atrium * Normal left atrial size. Right Atrium * Normal right atrial size. Interatrial Septum * Interatrial septum not well evaluated. Aortic Valve * Trileaflet aortic valve. * Mildly sclerotic aortic valve leaflets. * No aortic regurgitation. * No aortic stenosis. Mitral Valve * Mild mitral annular calcification * No mitral regurgitation. * No mitral stenosis. Tricuspid Valve * Normal tricuspid valve structure and function. * Trace tricuspid regurgitation. * No evidence of pulmonary hypertension. Pulmonic Valve * Normal pulmonic valve structure and function. * No pulmonic regurgitation. Aorta * Normally sized aortic root. Pericardium * The pericardium appears normal. IVC * Normal IVC dimensions and inspiratory collapse. Pulmonary Artery * Normal visualized portions of the main pulmonary artery. Chest CT 11/22/18 17:52 IMPRESSION: No acute or suspicious intrathoracic process. D/ / Marie Maciel Cha, MD / Marie Maciel Cha, MD Interpreting Provider: Marie Maciel Cha, MD Consult Discharge Plan - Plan Referrals: Vicky Prajapati MD [Primary Care Provider] - (3) Abdominal pain Qualifiers: Abdominal location: generalized Qualified Code(s): R10.84 - Generalized abdominal pain (4) Chest pain Qualifiers: Chest pain type: unspecified Qualified Code(s): R07.9 - Chest pain, unspecified (5) Hypertension Qualifiers: Hypertension type: essential hypertension Qualified Code(s): I10 - Essential (primary) hypertension (7) Gout Qualifiers: Gout site: unspecified site Gout etiology: unspecified cause Chronicity: chronic Presence of tophus: without tophus Qualified Code(s): M1A.9XX0 - Chronic gout, unspecified, without tophus (tophi)
[2018-11-24] MEDS: Ondansetron 4 MG/2 ML VIAL IVP PRN ×2 (01:50→23:09)
[2018-11-24] MEDS: cloNIDine HCl 0.1 MG TABLET PO PRN ×2 (03:16→11:44)
[2018-11-24] MEDS: *HR* HYDROcodone/Acet 5/325 mg TABLET PO PRN ×3 (03:16→19:43)
[2018-11-24 05:19] LABS: Basophils % 0.4 %; Eosinophils % 0.9 %; Hematocrit 35.6 % (35.3-44.9); Hemoglobin 12.2 g/dL (11.5-15.4); Immature Granulocytes % 0.2 % (0-4); Lymphocytes # 1.3 K/mcL (0.6-4.6); Lymphocytes % 27.9 %; Mean Corpuscular HGB Conc 34.3 g/dL (31.6-35.5); Mean Corpuscular Hemoglobin 29.3 pg (28.0-33.3); Mean Corpuscular Volume 85.6 fL (83.0-100.0); Monocytes # 0.5 K/mcL (0.0-1.3); Monocytes % 9.9 %; Neutrophils # 2.8 K/mcL (1.6-8.9); Platelet Count 230 K/mcL (140-400); Red Blood Count 4.16 M/mcL (3.82-4.97); Red Cell Distribution Width 12.5 % (11.5-14.5); Segmented Neutrophils % 60.7 %; White Blood Count 4.6 K/mcL (4.3-11.1)
[2018-11-24 05:23] LABS: VBG Ionized Calcium 1.41 mmol/L (1.15-1.35)
[2018-11-24 05:38] LABS: BUN/Creatinine Ratio 17 (6-26); Blood Urea Nitrogen 17 mg/dL (8-23); Calcium 10.6 mg/dL (8.6-10.3); Carbon Dioxide 28 mEq/L (23-29); Chloride 104 mEq/L (98-107); Glucose 127 mg/dL (70-105); Magnesium 1.5 mg/dL (1.6-2.6); Osmolality,Calculated 289 (280-300); Potassium 3.3 mEq/L (3.5-5.1); Sodium 138 mEq/L (136-145); eGFR For African Americans > 60 (> 60); eGFR For Non-African Americans 54 (> 60)
[2018-11-24] MEDS ORDERED: Regadenoson 0.4 MG/5 ML SYRINGE IVP ONE (06:26)
[2018-11-24] MEDS: *HR* Heparin 5,000 UNIT/ML VIAL SQ SCH ×2 (06:43→18:15)
[2018-11-24] MEDS: NIFEdipine XL (24 HR) 30 MG TAB.ER.24 PO SCH (11:44)
[2018-11-24] MEDS: 0.9 % Sodium Chloride 1,000 ML IVC SCH (11:55)
--- NOTE | 2018-11-24 13:23 | Internal Med Progress Note ---
Hospitalist Progress Note - Encounter Date of Encounter: 11/24/18 Time of Encounter: 13:00 - Subjective Interval History: Seen at bedside. Ablating of of mild nausea. Denies fever, chills, rigors. Got stress test which was positive. No other overnight events. - Exam Vitals: Temp Pulse Resp BP Pulse Ox 98.6 F 74 16 202/107 95 11/24/18 11:35 11/24/18 11:35 11/24/18 11:35 11/24/18 11:35 11/24/18 11:35 Exam: General: Alert and oriented, no physical distress, able to follow commands. HEENT: No thyromegaly, no lymphadenopathy, no discharge. Eyes: No discharge. Normal conjuctiva, no icterus Respiratory: Normal vesicular breathing, no added sounds, breathing equal in both sides. CVS: Normal heart sounds, no murmurs, regular rhthm, no edema Extremities: No peripheral edema, peripheral pulses intact. Lymph nodes: No lymphadenopathy Gastrointestinal: Soft, nontender abdomen, normal abdominal sounds. No distention noted. Genitourinary: No paravertebral tenderness. Skin: No rash, ulcers or wound. Neurological: Alert and oriented. No focal deficits. Cranial nerves II-XII intact. - Assessment and Plan (1) Hypercalcemia Current Visit: Yes Status: Acute Assessment and Plan: Etiology unclear. On the previous review of labs, patient calcium was elevated but was in 10s Calcium at presentation was 13, today it is 10.5. currently on IV fluids at 50 mL per hour. Parathyroid hormone level 13. Vitamin D level of 45. TSH normal. SPEP results pending. CT scan of the chest is normal. Could be related to ingestion of vitamin D?? Other possibility could be Use of HCTZ WIll cotninue the IV fluids at reduced rate Will hold vitamin D Repat levels on outpt basis (2) Hypokalemia Current Visit: Yes Status: Acute Assessment and Plan: K of 3.3 today Repleted Recheck the levels (3) Abdominal pain Current Visit: Yes Status: Acute Assessment and Plan: Etiology unclear. CT scan of the abdomen was done which was negative for any abdominal mass or kidney stones. Could be related to hypercalcemia Had diarrhea last night Zofran for the nausea (4) Chest pain Current Visit: Yes Status: Acute Assessment and Plan: Etiology unlcear Troponin levels were normal x 2 EKG negative. Echocardiogram showed normal ejection fraction, asymmetric hypertrophy of the basal septum, atypical septal motion consistent with bundle branch block. Stress test with the inferolateral perfusion defect Cardioloy conuslt Nothing by mouth after midnight. (5) Hypertension Current Visit: Yes Status: Acute Assessment and Plan: History of essential hypertension currently on medications. Resume home medications. Increase the dsoe of nifedipine to 60 mg daily Ordered PO clondiien as needed for blood pressure above 180 as the patient blood pressure has been high in the hospital. Could be related to hypercalcemia. (6) DVT prophylaxis Current Visit: Yes Status: Acute Assessment and Plan: SUbq heparin (7) Gout Current Visit: Yes Status: Acute Assessment and Plan: Hx of gout Check uric acid levesl Cont probenecid (8) Hypomagnesemia Current Visit: Yes Status: Acute Assessment and Plan: MAg of 1.5 Repleted Repeat leves tomorrrow - Time Spent with Patient Total time spent is greater than 50% in coordination of care (as documented) at patient's floor/unit and/or counseling patient: Internal Medicine: Result - Labs CBC & Chem 7: 11/24/18 04:50 11/24/18 04:50 Labs: Short CBC 11/24/18 Range/Units 04:50 WBC 4.6 (4.3-11.1) K/mcL Hgb 12.2 (11.5-15.4) g/dL Hct 35.6 (35.3-44.9) % Plt Count 230 (140-400) K/mcL Neutrophils # 2.8 (1.6-8.9) K/mcL BMP 11/24/18 04:50 Sodium 138 Potassium 3.3 L Chloride 104 Carbon Dioxide 28 BUN 17 Creatinine 1.01 Glucose 127 H Calcium 10.6 H Consult Discharge Plan - Plan Referrals: Vicky Prajapati MD [Primary Care Provider] - 11/30/18 10:45 am ___ (3) Abdominal pain Qualifiers: Abdominal location: generalized Qualified Code(s): R10.84 - Generalized abdominal pain (4) Chest pain Qualifiers: Chest pain type: unspecified Qualified Code(s): R07.9 - Chest pain, unspecified (5) Hypertension Qualifiers: Hypertension type: essential hypertension Qualified Code(s): I10 - Essential (primary) hypertension (7) Gout Qualifiers: Gout site: unspecified site Gout etiology: unspecified cause Chronicity: chronic Presence of tophus: without tophus Qualified Code(s): M1A.9XX0 - Chronic gout, unspecified, without tophus (tophi)
[2018-11-24] MEDS: Simethicone 80 MG TAB.CHEW PO PRN (21:23)
[2018-11-25 01:23] LABS: Basophils % 0.3 %; Eosinophils # 0.1 K/mcL (0.0-0.6); Eosinophils % 0.8 %; Hematocrit 35.4 % (35.3-44.9); Immature Granulocytes % 0.5 % (0-4); Lymphocytes # 1.2 K/mcL (0.6-4.6); Lymphocytes % 19.1 %; Mean Corpuscular HGB Conc 33.9 g/dL (31.6-35.5); Mean Corpuscular Hemoglobin 29.1 pg (28.0-33.3); Mean Corpuscular Volume 85.9 fL (83.0-100.0); Mean Platelet Volume 8.6 fL (9.4-12.4); Monocytes # 0.8 K/mcL (0.0-1.3); Neutrophils # 4.1 K/mcL (1.6-8.9); Platelet Count 205 K/mcL (140-400); Red Blood Count 4.12 M/mcL (3.82-4.97); Red Cell Distribution Width 12.7 % (11.5-14.5); Segmented Neutrophils % 66.3 %; White Blood Count 6.2 K/mcL (4.3-11.1)
[2018-11-25 01:44] LABS: Calcium 10.1 mg/dL (8.6-10.3); Magnesium 1.6 mg/dL (1.6-2.6)
[2018-11-25] MEDS ORDERED: *HR* Promethazine 25 MG/ML VIAL IVP ONE (01:47)
[2018-11-25] MEDS: *HR* HYDROcodone/Acet 5/325 mg TABLET PO PRN ×3 (02:00→19:17)
[2018-11-25] MEDS: cloNIDine HCl 0.1 MG TABLET PO PRN ×2 (04:17→23:43)
[2018-11-25] MEDS: *HR* Heparin 5,000 UNIT/ML VIAL SQ SCH ×2 (04:56→16:30)
[2018-11-25] MEDS: Ondansetron 4 MG/2 ML VIAL IVP PRN ×3 (05:09→23:43)
[2018-11-25] MEDS ORDERED: cloNIDine HCl 0.1 MG TABLET PO ONE (07:34)
[2018-11-25] MEDS ORDERED: NIFEdipine XL (24 HR) 60 MG TAB.ER.24 PO SCH (09:00)
[2018-11-25 09:27] LABS: Calcium 10.5 mg/dL (8.6-10.3); Potassium 3.9 mEq/L (3.5-5.1)
[2018-11-25] MEDS ORDERED: Nitroglycerin 25 MG/250 ML INFUS..BTL IVC SCH (10:00)
--- NOTE | 2018-11-25 10:51 | Cardiology Consult Note ---
<Naeem Hall - Last Filed: 11/25/18 11:21> Date of Encounter: 11/25/18 Time of Encounter: 10:45 Assessment and Plan (1) Hypertension Current Visit: Yes Status: Acute Per Cardiology: Presented with systolic blood pressures over 200, currently systolic blood pressures in the 200s. On IV NTG gtt. Continue to titrate meds for BP control. Qualifiers: Hypertension type: essential hypertension Qualified Code(s): I10 - Essential (primary) hypertension (2) Abnormal nuclear stress test Current Visit: Yes Status: Acute Per Cardiology: Troponins negative 2. ECHO: Impressions: LVEF 60-65%. Normal LV chamber size and function. Mild asymmetric hypertrophy of the basal septum. Mild left ventricular diastolic dysfunction. Atypical septal motion consistent with bundle branch block. Normal right ventricular structure and function. No evidence of pulmonary hypertension. No significant valvular dysfunction. Left Ventricular Wall Motion: Rest Echo Findings All wall segments showed normal motion. Non-exercise nuclear stress test showed "small size, mild intensity, reversible inferior lateral perfusion defect suggestive of ischemia". BP needs optimized. Now with INÉS on CKD. Patient seen by Dr. Bob. Reviewed and discussed, recommendation for outpatient follow-up to explore if further ischemic evaluation clinically warranted once acute issues improved. Cardiology signing off, reconsult as needed, follow-up arranged. Patient and family verbalized understanding and agree to plan. All questions answered. (3) INÉS (acute kidney injury) Current Visit: Yes Status: Acute Per Cardiology: Appears to have history of CKD 3a, worsening creatinine of 1.6. Avoid nephrotoxics. Consider nephrology consult. Discussion w patient/family: The assessment and plan as outlined above was discussed with the patient and/or family members who expressed understanding and agreement. All questions were answered. Thank you for involving us in the care of your patient. Please call with any questions. History of Present Illness Consult date: 11/25/18 Consult reason: +ST Chief complaint: Back pain History of present illness: Ms. Chen is a 73 year old female with a relevant past medical history of HTN and HLD. Cardiology consult for abnormal nuclear stress test results. Previous records reviewed: "Presented to the [facility] with the complaints of pain in the upper back. Pt has been having pain in the joints for almost 1 year. She has been to [facility], diagnosed with gout currently on probenecid. Now she has been having pain between her shoulder blades for last 1 day, progressively worseinng, no aggravating or relieving factors." Patient seen with family at bedside. She confirms the above information. She denies any chest pain, short of breath, palpitations. Denies any dizziness, syncope, falls. Denies any active bleeding or blood loss. Reports past history of some mild renal insufficiency. Denies any recent infectious process. Past Med Surg Social Fam HX - Past Medical History Attestation: Yes The following information was validated with the patient. Source: patient, old records reviewed, obtained from family Medical history: hyperlipidemia, hypertension Psychiatric history: no psych history - Past Surgical History Surgical History: no surgical history - Social History Smoking Status: Never smoker Alcohol use: none Drug use: none - Family History Father Living Status: Hx Family Cancer: Yes Medications and Allergies Duloxetine HCl 20 mg PO BID 11/22/18 [History] HYDROcodone/Acet 5/325 mg [Quenemo 5-325 mg] 1 tab PO Q6H PRN 11/22/18 [History] NIFEdipine [Nifedipine ER] 30 mg PO DAILY 11/22/18 [History] Olmesartan Medoxomil 40 mg PO DAILY 11/22/18 [History] Probenecid [Benemid] 500 mg PO DAILY 11/22/18 [History] Triamterene/HCTZ 37.5/25mg [Dyazide] 1 each PO DAILY 11/22/18 [History] Allergy/AdvReac Type Severity Reaction Status Date / Time Aliskiren [From Tekturna] Allergy See Verified 02/03/15 10:20 Comments amlodipine [From Norvasc] Allergy Cough Verified 02/03/15 10:20 atorvastatin [From Lipitor] Allergy Weakness Verified 02/03/15 10:20 Hydralazine Allergy Fatigued Verified 02/03/15 10:20 Labetalol Allergy See Verified 02/03/15 10:20 Comments nebivolol [From Bystolic] Allergy See Verified 02/03/15 10:20 Comments simvastatin [From Zocor] Allergy Weakness Verified 02/03/15 10:20 allopurinol AdvReac See Verified 02/03/15 10:20 Comments doxazosin AdvReac Congested Verified 02/03/15 10:20 lisinopril AdvReac Cough Verified 02/03/15 10:20 metoprolol [From Toprol XL] AdvReac See Verified 02/03/15 10:20 Comments minoxidil AdvReac See Verified 02/03/15 10:20 Comments All Systems Review: The remainder of the systems were reviewed and are negative - Cardiovascular Cardiovascular: as per HPI - Musculoskeletal Musculoskeletal: back pain Physical Examination Vital Signs, Last 4 Hours Temp Pulse Resp BP Pulse Ox 11/25/18 09:47 200/94 11/25/18 07:10 98.4 F 57 16 225/83 97 General: Conversant, No Apparent Distress HEENT: Atraumatic, Normocephaly, Mucus Membranes Moist Neck: No JVD, Normal carotid pulses Cardiac: Reg Rate and Rhythm, Normal S1 and S2, No Murmur Lungs: Normal Breath Sounds, No Wheeze, Rales, Rhonchi Neuro: Alert and responsive, No focal deficits noted Abdomen: Soft, Non-Tender Skin: No rashes noted on visualized skin Musculoskeletal: No Chest Wall Tenderness Extremities: No Clubbing, No Cyanosis, No Edema, Normal Pulses Results 11/25/18 01:03 11/25/18 07:58 Lab Results Laboratory Tests 11/22/18 11/22/18 11/23/18 13:45 17:25 04:30 Hgb Hct Creatinine 1.20 Est GFR (Non-Af Amer) 44 L Magnesium AST 13 ALT 10 Troponin I < 0.03 0.03 TSH 2.238 11/25/18 11/25/18 11/25/18 01:03 01:03 07:58 Hgb 12.0 Hct 35.4 Creatinine 1.48 H 1.63 H Est GFR (Non-Af Amer) 35 L 31 L Magnesium 1.6 AST ALT Troponin I TSH ITS Impressions Abdomen/Pelvis CT 11/22/18 13:34 IMPRESSION: 1. No acute finding in the abdomen or pelvis to account for patient's abdominal pain. 2. Sigmoid diverticulosis without evidence of diverticulitis. 3. No evidence of obstructive uropathy. 4. Hepatic steatosis. D/ / 11/22/2018 14:22:06 Des Collins MD / marielos Interpreting Provider: Des Collins MD Chest X-Ray 11/22/18 13:35 IMPRESSION: Linear atelectasis or scarring in the left lung base. No other acute cardiopulmonary findings. D/ / Ramya Knight MD / Ramya Knight MD Interpreting Provider: Ramya Knight MD Echocardiogram 11/22/18 16:30 Impressions: LVEF 60-65%. Normal LV chamber size and function. Mild asymmetric hypertrophy of the basal septum. Mild left ventricular diastolic dysfunction. Atypical septal motion consistent with bundle branch block. Normal right ventricular structure and function. No evidence of pulmonary hypertension. No significant valvular dysfunction. Left Ventricular Wall Motion: Rest Echo Findings All wall segments showed normal motion. Findings: Study Quality * Technically adequate exam. ECG Findings * Sinus rhythm with BBB. Left Ventricle * LVEF 60-65%. * Normal LV chamber size and function. * Mild asymmetric hypertrophy of the basal septum. * Mild left ventricular diastolic dysfunction. * Atypical septal motion consistent with bundle branch block. Right Ventricle * Normal right ventricular structure and function. Left Atrium * Normal left atrial size. Right Atrium * Normal right atrial size. Interatrial Septum * Interatrial septum not well evaluated. Aortic Valve * Trileaflet aortic valve. * Mildly sclerotic aortic valve leaflets. * No aortic regurgitation. * No aortic stenosis. Mitral Valve * Mild mitral annular calcification * No mitral regurgitation. * No mitral stenosis. Tricuspid Valve * Normal tricuspid valve structure and function. * Trace tricuspid regurgitation. * No evidence of pulmonary hypertension. Pulmonic Valve * Normal pulmonic valve structure and function. * No pulmonic regurgitation. Aorta * Normally sized aortic root. Pericardium * The pericardium appears normal. IVC * Normal IVC dimensions and inspiratory collapse. Pulmonary Artery * Normal visualized portions of the main pulmonary artery. Chest CT 11/22/18 17:52 IMPRESSION: No acute or suspicious intrathoracic process. D/ / Marie Maciel Cha, MD / Marie Maciel Cha, MD Interpreting Provider: Marie Maciel Cha, MD Active Medications Hydrocodone Bitart/Acetaminophen (Quenemo 5-325 Mg) 1 tab PO Q6H PRN PRN Reason: Pain Stop: 05/24/19 17:57 Last Admin: 11/25/18 08:03 Dose: 1 tab Documented by: Clonidine HCl (Clonidine Hcl) 0.1 mg PO TID PRN PRN Reason: Systolic BP > 180 Stop: 05/24/19 21:01 Last Admin: 11/25/18 04:17 Dose: 0.1 mg Documented by: Duloxetine HCl (Cymbalta) 20 mg PO BID [facility] Stop: 05/24/19 21:01 Last Admin: 11/25/18 07:32 Dose: Not Given Documented by: Heparin Sodium (Porcine) (Heparin) 5,000 unit SQ Q12HCO [facility]; Protocol Stop: 05/24/19 18:01 Last Admin: 11/25/18 04:56 Dose: 5,000 unit Documented by: Nitroglycerin (Nitroglycerin Premix 25 Mg/250 Ml) 25 mg in 250 mls @ 3 mls/hr IVC .Q24H [facility]; Protocol Stop: 05/27/19 10:01 Last Admin: 11/25/18 10:35 Dose: 5 mcg/min, 3 mls/hr Documented by: Losartan Potassium (Cozaar) 100 mg PO DAILY [facility] Stop: 05/25/19 09:01 Last Admin: 11/25/18 07:32 Dose: 100 mg Documented by: Naloxone HCl (Narcan) 0.4 mg IVP Q2MPRN PRN PRN Reason: SEE COMMENTS Stop: 05/24/19 16:27 Nifedipine (Procardia Xl) 60 mg PO DAILY [facility] Stop: 05/27/19 09:01 Last Admin: 11/25/18 07:32 Dose: 60 mg Documented by: Ondansetron HCl (Zofran) 4 mg IVP Q6HR PRN; Protocol PRN Reason: Nausea And Vomiting Stop: 05/25/19 09:13 Last Admin: 11/25/18 05:09 Dose: 4 mg Documented by: Polyethylene Glycol (Miralax) 17 gm PO DAILY PRN PRN Reason: Constipation Stop: 05/25/19 10:02 Probenecid (Benemid) 500 mg PO DAILY [facility] Stop: 05/25/19 09:01 Last Admin: 11/25/18 08:03 Dose: 500 mg Documented by: Simethicone (Gas-X) 80 mg PO TID PRN PRN Reason: Dyspepsia Stop: 05/26/19 21:15 Last Admin: 11/24/18 21:23 Dose: 80 mg Documented by: Triamterene/HCTZ (Dyazide) 1 each PO DAILY [facility] Stop: 05/25/19 09:01 Last Admin: 11/25/18 07:32 Dose: 1 each Documented by: - Imaging and Cardiology Echo: report reviewed - EKG Interpretation EKG results cardiology: personally reviewed (ST 100's), normal ECG, sinus rhythm, no diagnostic ischemia Consult Discharge Plan - Plan Referrals: Vicky Prajapati MD [Primary Care Provider] - 11/30/18 10:45 am <Juaquin Bob - Last Filed: 11/25/18 12:00> Date of Encounter: 11/25/18 - Attending Attestation I have personally performed a face to face evaluation on this patient. I have reviewed and agree with the care plan. History and Exam by me shows: 73-year-old female with multiple cardiac risk factors found have mild inferior ischemia on a stress test due to atypical type chest pain. Plan is for outpatient [facility] pending hospital course in improvement in blood pressure and renal insufficiency. Patient currently not a candidate due to worsening renal function and hypertensive urgency at this time. Assessment and Plan Discussion w patient/family: The assessment and plan as outlined above was discussed with the patient and/or family members who expressed understanding and agreement. All questions were answered. Thank you for involving us in the care of your patient. Please call with any questions. History of Present Illness History of present illness: Ms. Chen is a 73 year old female All Systems Review: The remainder of the systems were reviewed and are negative Physical Examination Vital Signs, Last 4 Hours Temp Pulse Resp BP Pulse Ox 11/25/18 11:31 98.1 F 68 18 151/84 97 11/25/18 11:09 72 14 148/83 96 11/25/18 10:59 97.8 F 14 172/93 97 11/25/18 10:35 98.1 F 66 14 172/90 94 11/25/18 09:47 200/94 Results 11/25/18 01:03 11/25/18 07:58 Lab Results 11/25/18 11/25/1811/25/19 01:03 01:03 07:58 WBC 6.2 Hgb 12.0 Hct 35.4 Plt Count 205 Sodium 138 140 Potassium 4.0 3.9 Chloride 105 107 Carbon Dioxide 25 26 BUN 18 18 Creatinine 1.48 H 1.63 H Glucose 133 H 144 H Calcium 10.1 10.5 H Magnesium 1.6
--- NOTE | 2018-11-25 13:46 | Internal Med Progress Note ---
Hospitalist Progress Note - Encounter Date of Encounter: 11/25/18 Time of Encounter: 07:45 - Subjective Interval History: Patient was seen at bedside. She is having nausea and vomiting. Was given Zofran. Denies any dizziness or headache. The patient noted to be very high. Also noted to have elevated creatinine on morning labs. - Exam Vitals: Temp Pulse Resp BP Pulse Ox 98.1 F 68 18 143/86 97 11/25/18 11:31 11/25/18 11:31 11/25/18 11:31 11/25/18 13:30 11/25/18 11:31 Exam: General: Alert and oriented, no physical distress, able to follow commands. Respiratory: Normal vesicular breathing, no added sounds, breathing equal in both sides. CVS: Normal heart sounds, no murmurs, regular rhthm, no edema Extremities: No peripheral edema, peripheral pulses intact. Lymph nodes: No lymphadenopathy Gastrointestinal: Soft, nontender abdomen, normal abdominal sounds. No distention noted. Genitourinary: No paravertebral tenderness. Skin: No rash, ulcers or wound. Neurological: Alert and oriented. No focal deficits. Cranial nerves II-XII intact. - Assessment and Plan (1) Hypertensive emergency Current Visit: Yes Status: Acute Assessment and Plan: BP continued to get high in the morning NO relief with the oral meds Will treat as HTN emergency considering INÉS Started on nitroglycerin drip (2) Hypercalcemia Current Visit: Yes Status: Acute Assessment and Plan: Etiology unclear. On the previous review of labs, patient calcium was elevated but was in 10s Calcium at presentation was 13, today it is 10.5. Parathyroid hormone level 13. Vitamin D level of 45. TSH normal. SPEP results pending. CT scan of the chest is normal. Could be related to ingestion of vitamin D?? Other possibility could be Use of HCTZ Will hold vitamin D Repat levels on outpt basis (3) Chest pain Current Visit: Yes Status: Acute Assessment and Plan: Troponin levels were normal x 2 EKG negative. Echocardiogram showed normal ejection fraction, asymmetric hypertrophy of the basal septum, atypical septal motion consistent with bundle branch block. Stress test with the inferolateral perfusion defect Cardioloy conuslt placed Unlikely to get cath during this hospitalixation considering INÉS (4) DVT prophylaxis Current Visit: Yes Status: Acute Assessment and Plan: SUbq heparin (5) Gout Current Visit: Yes Status: Acute Assessment and Plan: Hx of gout Check uric acid levesl Cont probenecid (6) INÉS (acute kidney injury) Current Visit: Yes Status: Acute Assessment and Plan: Likley due to hypertensive emergency wiht the end organ damage Order urine studies Monitor the BP Repeat BMP - Time Spent with Patient Total time spent is greater than 50% in coordination of care (as documented) at patient's floor/unit and/or counseling patient: Internal Medicine: Result - Labs CBC & Chem 7: 11/25/18 01:03 11/25/18 07:58 Labs: Short CBC 11/25/18 Range/Units 01:03 WBC 6.2 (4.3-11.1) K/mcL Hgb 12.0 (11.5-15.4) g/dL Hct 35.4 (35.3-44.9) % Plt Count 205 (140-400) K/mcL Neutrophils # 4.1 (1.6-8.9) K/mcL BMP 11/25/18 11/25/18 01:03 07:58 Sodium 138 140 Potassium 4.0 3.9 Chloride 105 107 Carbon Dioxide 25 26 BUN 18 18 Creatinine 1.48 H 1.63 H Glucose 133 H 144 H Calcium 10.1 10.5 H Consult Discharge Plan - Plan Referrals: Vicky Prajapati MD [Primary Care Provider] - 11/30/18 10:45 am (3) Chest pain Qualifiers: Chest pain type: unspecified Qualified Code(s): R07.9 - Chest pain, u nspecified (5) Gout Qualifiers: Gout site: unspecified site Gout etiology: unspecified cause Chronicity: chronic Presence of tophus: without tophus Qualified Code(s): M1A.9XX0 - Chronic gout, unspecified, without tophus (tophi)
[2018-11-25 14:10] LABS: Sodium, Urine 96.9 mEq/L
[2018-11-25 14:19] LABS: Calcium 10.2 mg/dL (8.6-10.3); Potassium 3.7 mEq/L (3.5-5.1)
[2018-11-25] MEDS: 0.9 % Sodium Chloride 1,000 ML IVC SCH (14:24)
[2018-11-25] MEDS: Simethicone 80 MG TAB.CHEW PO PRN (19:17)
[2018-11-26] MEDS: *HR* HYDROcodone/Acet 5/325 mg TABLET PO PRN ×2 (01:47→08:13)
[2018-11-26 05:43] LABS: Alpha 2 Globulin (PEP) 0.84 g/dL (0.48-1.05); Beta Globulin (PEP) 0.75 g/dL (0.48-1.10)
[2018-11-26] MEDS: 0.9 % Sodium Chloride 1,000 ML IVC SCH (06:16)
[2018-11-26] MEDS: *HR* Heparin 5,000 UNIT/ML VIAL SQ SCH ×2 (06:16→17:33)
[2018-11-26] MEDS: Ondansetron 4 MG/2 ML VIAL IVP PRN ×3 (06:16→17:33)
[2018-11-26] MEDS ORDERED: hydrALAZINE 25 MG TABLET PO SCH ×2 (08:00→12:00)
[2018-11-26 08:14] LABS: Albumin 3.8 g/dL (3.5-5.7); Albumin/Globulin Ratio 1.5 (1.1-2.2); Bilirubin,Total 0.5 mg/dL (0.3-1.0); Calcium 10.3 mg/dL (8.6-10.3); Globulin 2.6 g/dL (2.4-3.5); Potassium 3.7 mEq/L (3.5-5.1); Total Protein 6.4 g/dL (6.4-8.9)
[2018-11-26] MEDS: NIFEdipine XL (24 HR) 30 MG TAB.ER.24 PO SCH ×2 (08:14→09:36)
[2018-11-26 08:30] LABS: IFE Reflexed NOT DONE
[2018-11-26] MEDS: *HR* Promethazine 25 MG/ML VIAL IVP PRN ×3 (09:39→21:33)
[2018-11-26] MEDS: Simethicone 80 MG TAB.CHEW PO PRN (09:42)
[2018-11-26] MEDS: *HR* HYDROcodone/Acet 7.5/325 mg TABLET PO PRN ×2 (11:41→17:33)
[2018-11-26] MEDS ORDERED: *HR* LORazepam 0.5 MG TABLET PO ONE (13:42)
[2018-11-26] MEDS ORDERED: Pantoprazole 40 MG VIAL IVP ONE (13:45)
[2018-11-26] MEDS: Bismuth Subsalicylate 120 ML ORAL SUSPENSION PO PRN (15:39)
--- NOTE | 2018-11-26 17:51 | Internal Med Progress Note ---
Hospitalist Progress Note - Encounter Date of Encounter: 11/26/18 Time of Encounter: 17:48 - Subjective Interval History: Patient says that nausea is persistent. On further history, patient has had this for the last several months. This started new medications recently, but this postdated the start of her nausea. Has been having belching sensations as well. Not on any medications for acid reflux. Not wanting to take hydralazine because she feels this makes her symptoms worse. - Exam Vitals: Temp Pulse Resp BP Pulse Ox 98.5 F 69 14 151/81 94 11/26/18 15:06 11/26/18 15:06 11/26/18 15:06 11/26/18 15:06 11/26/18 15:06 Exam: General: Ill-appearing and in no acute distress HEENT: No erythema of posterior pharynx. No exudates. Lymphatics: No mandibular or cervical lymphadenopathy Cardiovascular: RRR. No murmurs. No chest wall tenderness. Lungs: Clear to auscelltation bilaterally. Regular chest rise. Abdomen: Non-tender. No rebound or gaurding. Nl bowel sounds. Extremities: No edema. 2+ pulses radial and pedal pulses Skin: No rahses, abrasions, or contusions. Nl cap refill. Psych: Nl attention. A&Ox3 Neuro: formula weigher II-XII intact. 5/5 strength. Sensation to light touch and pinprick intact. - Assessment and Plan (1) Intractable nausea and vomiting Current Visit: Yes Status: Acute Assessment and Plan: Patient originally presented with upper back pain found to be hypercalcemic with a calcium of 13 now with worsening nausea vomiting that, upon further history, has been present over the last several months. -Patient has multiple comorbidities listed below and nausea could be related any number of them: Most likely medication related as patient had acute nausea event after taking medications on empty stomach Could be related to reversible ischemia evident on stress test but less likely (nausea does not come on on exertion, is at rest) Could be related to hypercalcemia, however, this has largely resolved and nausea persists May be related to acid reflux. Provided acid blockade with symptom relief PLAN: - S/p Protonix 80mg IV x1 and peptobismol - We will reevaluate later. If symptoms still not resolved, patient's family is requesting GI consult - Antiemetics when necessary (2) Hypercalcemia Current Visit: Yes Status: Acute Assessment and Plan: Patient presented with hypercalcemia in the setting of hydrochlorothiazide use. -Resolved with IVF PLAN: - Discontinue hydrochlorothiazide indefinitely (3) Hypertensive emergency Current Visit: Yes Status: Acute Assessment and Plan: Present on admission and started on a nitroglycerin drip. -Complicated by hypercalcemia so cannot use hydrochlorothiazide anymore unfort unately -Patient with many listed allergies and refuses alternatives that we offer her which further complicate management -HR too low to support BB -Opened to trying Spironolactone so this will be started PLAN: - Spironolactone 50mg qd - Nifedipine 50mg qd --> 90mg qd - Losartan 100mg qd - D/c hctz combo pill indefinitely (4) INÉS (acute kidney injury) Current Visit: Yes Status: Acute Assessment and Plan: Etiology somewhat unclear. May be secondary to hypertensive emergency or poor oral intake over last several days. UA reflex to culture but no growth. -Improved with IVF PLAN: - Trend (5) Chest pain Current Visit: Yes Status: Acute Assessment and Plan: Reversible ischemia evident on stress test. Etiology consulted and recommended further workup for this outpatient given multiple active issues currently. - Controlled blood pressure - We will start aspirin once creatinine normalizes (6) Gout Current Visit: Yes Status: Acute Assessment and Plan: Claims that she got nauseous after taking probenecid. - We will discontinue for now, will have PCP consider restarting this on an outpatient basis DVT Prophylaxis: Heparin Internal Medicine: Result - Labs CBC & Chem 7: 11/25/18 01:03 11/26/18 07:44 Labs: BMP 11/26/18 07:44 Sodium 139 Potassium 3.7 Chloride 103 Carbon Dioxide 29 BUN 17 Creatinine 1.45 H Glucose 137 H Calcium 10.3 Liver Function 11/26/18 Range/Units 07:44 Total Bilirubin 0.5 (0.3-1.0) mg/dL AST 11 L (13-39) Units/L ALT 8 (7-52) Units/L Alkaline Phosphatase 55 (34-104) Units/L Albumin 3.8 (3.5-5.7) g/dL Consult Discharge Plan - Plan Referrals: Vicky Prajapati MD [Primary Care Provider] - 09/13/19 10:45 am (5) Chest pain Qualifiers: Chest pain type: unspecified Qualified Code(s): R07.9 - Chest pain, unspecified (6) Gout Qualifiers: Gout site: unspecified site Gout etiology: unspecified cause Chronicity: chronic Presence of tophus: without tophus Qualified Code(s): M1A.9XX0 - Chronic gout, unspecified, without tophus (tophi)
[2018-11-27] MEDS: *HR* HYDROcodone/Acet 7.5/325 mg TABLET PO PRN ×4 (00:16→20:49)
[2018-11-27] MEDS: Ondansetron 4 MG/2 ML VIAL IVP PRN ×2 (00:16→17:09)
[2018-11-27 02:35] LABS: Calcium 10.3 mg/dL (8.6-10.3); Potassium 3.4 mEq/L (3.5-5.1)
[2018-11-27] MEDS: *HR* Heparin 5,000 UNIT/ML VIAL SQ SCH ×2 (06:06→17:05)
[2018-11-27] MEDS: NIFEdipine XL (24 HR) 30 MG TAB.ER.24 PO SCH (08:39)
--- NOTE | 2018-11-27 11:13 | Gastroenterology Consult Note ---
Date of Encounter: 11/27/18 Time of Encounter: 11:07 - Assessment and plan (1) Nausea Current Visit: Yes Status: Acute Assessment and plan: Reports history of nausea ongoing for the past 3 months States takes about 4 tums a day for numerous years for bloating symptoms Denies any hematemesis or specific abdominal pain States the nausea was causing decrease in appetite Since admission she was noted to have hypercalcemia which has been corrected with IV hydration and stopping HCTZ Nausea was likely secondary to hypercalcemia vs gastritis Given her history of gout and significant intake of Tums at home would recommend holding hydrochlorothiazide as it can increase uric acid levels and cause hypercalcemia Nausea this time is resolved History of stomach cancer in her father and pancreatic cancer in her brother Discussed with her an EGD to rule out ulcers or esophagitis versus gastritis given chronic history of bloating and need for Tums daily Plan for EGD tomorrow CEA and CA-19-9 ordered Further recommendations by Dr. San, thank you for involving GI in her care - Time Spent With Patient Total time spent is greater than 50% in coordination of care (as documented) at patient's floor/unit and/or counseling patient: GI History of Present Illness - Data of Consult Requesting Physician: Severino Joseph - Consult Narrative History of present illness: Ms. Chen is a 73 year old female with past medical history of gout, hyperlipidemia and hypertension who presented to the ED complaining of nausea with loss of appetite ongoing for the past 3 months. Reports no episodes of helen sis. States that the nausea was associated with any type of food she would eat was only able to tolerate crackers and at times some liquids. Reports for colonoscopy was over 10 years ago denies any weight loss at this time. Additionally denies any previous EGDs. Does report history of chronic bloating for which she was taking 4 Tums a day for numerous years. Additionally states that for her gout has been on prednisone as well as colchicine and probenecid. She is allergic to numerous antihypertensives and was on hydrochlorothiazide which was controlling her blood pressure. In the ED she had a CT of the abdomen and pelvis which showed diverticulosis without any diverticulitis. At prese ntation she was noted to have calcium of 13. This morning she is resting comfortably in bed reports her symptoms have significantly improved and her nausea has resolved was able to eat breakfast. This morning her calcium is noted to be 10.3, hydrochlorothiazide has been stopped. She has denied fever, chills, shortness of breath, chest pain, abdominal pain, diarrhea, hematochezia or melena. Past Med Surg Social Fam HX - Past Medical History Medical history: hyperlipidemia, hypertension Psychiatric history: no psych history - Past Surgical History Surgical History: no surgical history - Social History Smoking Status: Never smoker Alcohol use: none Drug use: none - Family History Father Living Status: Hx Family Cancer: Yes - Gastrointestinal Gastrointestinal: Present: nausea. Absent: abdominal pain, diarrhea, vomiting - Constitutional Constitutional: no weight gain, no weight loss - EENT Nose, mouth and throat: Absent: dysphagia, hoarseness, sore throat - Cardiovascular Cardiovascular ROS: Absent: chest pain, palpitations - Respiratory Respiratory IM: Absent: cough, dyspnea, hemoptysis - Genitourinary Genitourinary: Absent: change in color, Urinary frequency - Neurological ROS Neurological GI: Absent: confusion, frequent falls, headache(s) - Integumentary Integumentary GI: Absent: pruritis, rash - Psychiatric ROS Psychiatric GI: Absent: anxiety, depression - Constitutional Vitals: Temp Pulse Resp BP Pulse Ox 98.3 F 65 17 180/91 94 11/27/18 07:03 11/27/18 07:03 11/27/18 05:21 11/27/18 07:03 11/27/18 05:21 - Head Head exam: Present: atraumatic, normal inspection - Eye Eye exam: Present: EOMI, sclera anicteric. Absent: conjunctival injection - ENT ENT exam: Present: mucous membranes moist, normal oropharynx - Neck Neck exam general surgery: Present: full ROM, trachea midline - Respiratory Respiratory exam: Present: CTAB. Absent: rhonchi, wheezes - Cardiovascular Cardiovascular exam: Present: RRR, +S1, +S2 - GI/Abdominal GI/Abdominal exam: Present: normal bowel sounds, soft. Absent: tenderness - Extremities Exam Extremities exam: Present: warm. Absent: pedal edema, tenderness - Skin Skin exam: Present: dry, intact Results - Labs CBC & Chem 7: 11/25/18 01:03 11/27/18 01:58 Labs: Last Result 11/27/18 01:58 Calcium 10.3 Consult Discharge Plan - Plan Instructions: Spironolactone (By mouth), Nifedipine (By mouth), Omeprazole (By mouth) Referrals: Vicky Prajapati MD [Primary Care Provider] - 11/30/18 10:45 am Prescriptions: NIFEdipine [Nifedipine ER] 90 mg PO Q24H #30 tablet.er Omeprazole 20 mg PO Q24H #30 tab.rap. Spironolactone 100 mg PO Q24H #30 tablet
[2018-11-27] MEDS: Bismuth Subsalicylate 120 ML ORAL SUSPENSION PO PRN (13:00)
--- NOTE | 2018-11-27 14:02 | Discharge Summary ---
Orders not resulted at time of discharge: Pending orders 11/23/18 04:30 Parathormone Related Peptide AM 0400 Date of Encounter: 11/27/18 Time of Encounter: 13:57 - Discharge Diagnosis (1) Intractable nausea and vomiting Priority: Primary Status: Acute Qualifiers: Vomiting type: cyclical vomiting Qualified Code(s): G43.A1 - Cyclical vomiting, intractable (2) Hypercalcemia Priority: Secondary Status: Acute (3) Hypertensive emergency Priority: Secondary Status: Acute (4) INÉS (acute kidney injury) Priority: Secondary Status: Acute (5) Chest pain Priority: Secondary Status: Acute Qualifiers: Chest pain type: unspecified Qualified Code(s): R07.9 - Chest pain, unspecified (6) Gout Priority: Secondary Status: Acute Qualifiers: Gout site: unspecified site Gout etiology: unspecified cause Chronicity: chronic Presence of tophus: without tophus Qualified Code(s): M1A.9XX0 - Chronic gout, unspecified, without tophus (tophi) Hospital course: Ms. Chen is a 73 year old female who presented with upper back pain found to be hypercalcemic with a calcium of 13 that was likely secondary to hctz use. Hctz was stopped but BP difficult to control during hospital stay largely secondary to patient's many reported intolerances to multiple BP medications. Discharged on stable BP regimen with BP before discharge of 148/86. Also of note, patient had stress test with reversible ischemia. Cardiology was consulted and, given multiple other issues going on, recommended further workup on an outpatient basis. Also with intractable n/v that was problematic during hospital stay and delayed discharge - has been going on for months so not an acute issue but will need to be follow-up on by PCP. -Will follow-up with PCP. Recommend repeat CMP at that time to monitor Ca, Cr, and K -Will f/u with Medical Aide -Will f/u with cardiology Discharge discussed with: patient, family - Time Spent with Patient Total time spent providing and/or coordinating discharge services: 85 minutes Time spent: Greater than 30 minutes - Discharge Medications Prescriptions: New NIFEdipine [Nifedipine ER] 90 mg PO Q24H #30 tablet.er Omeprazole 20 mg PO Q24H #30 tab.lily. Spironolactone 100 mg PO Q24H #30 tablet Continued HYDROcodone/Acet 5/325 mg [[place] 5-325 mg] 1 tab PO Q6H PRN PRN Reason: Pain Olmesartan Medoxomil 40 mg PO DAILY Discontinued Duloxetine HCl 20 mg PO BID Triamterene/HCTZ 37.5/25mg [Dyazide] 1 each PO DAILY NIFEdipine [Nifedipine ER] 30 mg PO DAILY Probenecid [Benemid] 500 mg PO DAILY Home Medications: HYDROcodone/Acet 5/325 mg [[place] 5-325 mg] 1 tab PO Q6H PRN 11/22/18 [History] Olmesartan Medoxomil 40 mg PO DAILY 11/22/18 [History] NIFEdipine [Nifedipine ER] 90 mg PO Q24H #30 tablet.er 11/27/18 [Rx] Omeprazole 20 mg PO Q24H #30 tab.rap.dr 11/27/18 [Rx] Spironolactone 100 mg PO Q24H #30 tablet 11/27/18 [Rx] Allergies/Adverse Reactions: Allergy/AdvReac Type Severity Reaction Status Date / Time Aliskiren [From Tekturna] Allergy See Verified 02/03/15 10:20 Comments amlodipine [From Norvasc] Allergy Cough Verified 02/03/15 10:20 atorvastatin [From Lipitor] Allergy Weakness Verified 02/03/15 10:20 Hydralazine Allergy Fatigued Verified 02/03/15 10:20 Labetalol Allergy See Verified 02/03/15 10:20 Comments nebivolol [From Bystolic] Allergy See Verified 02/03/15 10:20 Comments simvastatin [From Zocor] Allergy Weakness Verified 02/03/15 10:20 allopurinol AdvReac See Verified 02/03/15 10:20 Comments doxazosin AdvReac Congested Verified 02/03/15 10:20 lisinopril AdvReac Cough Verified 02/03/15 10:20 metoprolol [From Toprol XL] AdvReac See Verified 02/03/15 10:20 Comments minoxidil AdvReac See Verified 02/03/15 10:20 Comments Date of admission: 11/24/18 13:26 Primary care physician: Vicky Prajapati Consults: 11/24/18 13:17 Consult to Cardiology [CONS] Routine Comment: Consulting Provider: Cardiology Yanelis Reason for Consult: Positive stress test Call Completed: Yes 11/27/18 08:21 Consult to Gastroenterology [CONS] Routine Consulting Provider: Varunology Yanelis Reason for Consult: intractable n/v Call Completed: Yes - Constitutional Vitals: Temp Pulse Resp BP Pulse Ox 98.3 F 65 17 148/86 94 11/27/18 07:03 11/27/18 07:03 11/27/18 05:21 11/27/18 13:03 11/27/18 05:21 Exam: General: Ill-appearing and in no acute distress HEENT: No erythema of posterior pharynx. No exudates. Lymphatics: No mandibular or cervical lymphadenopathy Cardiovascular: RRR. No murmurs. No chest wall tenderness. Lungs: Clear to auscelltation bilaterally. Regular chest rise. Abdomen: Non-tender. No rebound or gaurding. Nl bowel sounds. Extremities: No edema. 2+ pulses radial and pedal pulses Skin: No rahses, abrasions, or contusions. Nl cap refill. Psych: Nl attention. A&Ox3 Neuro: dinkey operator II-XII intact. 5/5 strength. Sensation to light touch and pinprick intact. - Patient Status Disposition: Home, Self-Care Condition: Good Functional capacity at discharge: independent ambulation Overall status at discharge: patient is progressing back to baseline - Discharge Instructions Follow Up With: Vicky Prajapati MD [Primary Care Provider] - 11/30/18 10:45 am Forms: ED Satisfaction Letter, Work/School Release - Diet and Activity Activity: increase activity as tolerated Diet: advance to your usual diet
[2018-11-27] MEDS ORDERED: Simethicone 80 MG TAB.CHEW PO PRN (21:05)
[2018-11-28] MEDS: *HR* HYDROcodone/Acet 7.5/325 mg TABLET PO PRN ×3 (02:55→15:19)
[2018-11-28] MEDS: *HR* Heparin 5,000 UNIT/ML VIAL SQ SCH (05:21)
[2018-11-28 05:58] LABS: Hematocrit 36.1 % (35.3-44.9); Hemoglobin 12.2 g/dL (11.5-15.4); Mean Corpuscular HGB Conc 33.8 g/dL (31.6-35.5); Mean Corpuscular Hemoglobin 29.3 pg (28.0-33.3); Mean Corpuscular Volume 86.8 fL (83.0-100.0); Mean Platelet Volume 8.9 fL (9.4-12.4); Platelet Count 249 K/mcL (140-400); Red Blood Count 4.16 M/mcL (3.82-4.97); Red Cell Distribution Width 12.9 % (11.5-14.5)
[2018-11-28 06:12] LABS: Calcium 10.5 mg/dL (8.6-10.3); Potassium 3.3 mEq/L (3.5-5.1)
[2018-11-28] MEDS: NIFEdipine XL (24 HR) 30 MG TAB.ER.24 PO SCH (08:02)
[2018-11-28] MEDS: Ondansetron 4 MG/2 ML VIAL IVP PRN (09:04)
--- NOTE | 2018-11-28 12:32 | Anesthesia Evaluation PreOp ---
Date of Encounter: 11/28/18 Time of Encounter: 12:54 - Past History Planned Operation: EGD for nausea Cardiac History: Angina (evaluated by cardiology for chest pain, has small ischemic defect on evaluation. No urgent treatment needed at this time. More important for blood pressure and other issues be controlled at this time and cardiac will reevaluate as an outpatient.), HTN (admitted with uncontrolled hypertension, required nipride infusion for 24 hours, has been started on new po regimen.), Hyperlipidemia Pulmonary History: Other (never smoker) PUMP SERVICER History: Denies Any Significant HX Other Medical History: Denies Any Significant HX, Hepatic (hepatosteatosis), Diabetes Type II (on no treatment at this time), Other (admitted with back pain and intractable nausea and vomiting. Found to be hypercalcemic and hypertensive.) Anesthesia History: No Prior Anesthetic Complications, Past Anesthesia Alcohol Use: none Drug use: none Medications and Allergies HYDROcodone/Acet 5/325 mg [[place] 5-325 mg] 1 tab PO Q6H PRN 11/22/18 [History] Olmesartan Medoxomil 40 mg PO DAILY 11/22/18 [History] NIFEdipine [Nifedipine ER] 90 mg PO Q24H #30 tablet.er 11/27/18 [Rx] Omeprazole 20 mg PO Q24H #30 tab.rap.dr 11/27/18 [Rx] Spironolactone 100 mg PO Q24H #30 tablet 11/27/18 [Rx] Allergy/AdvReac Type Severity Reaction Status Date / Time Aliskiren [From Tekturna] Allergy See Verified 02/03/15 10:20 Comments amlodipine [From Norvasc] Allergy Cough Verified 02/03/15 10:20 atorvastatin [From Lipitor] Allergy Weakness Verified 02/03/15 10:20 Hydralazine Allergy Fatigued Verified 02/03/15 10:20 Labetalol Allergy See Verified 02/03/15 10:20 Comments nebivolol [From Bystolic] Allergy See Verified 02/03/15 10:20 Comments simvastatin [From Zocor] Allergy Weakness Verified 02/03/15 10:20 allopurinol AdvReac See Verified 02/03/15 10:20 Comments doxazosin AdvReac Congested Verified 02/03/15 10:20 lisinopril AdvReac Cough Verified 02/03/15 10:20 metoprolol [From Toprol XL] AdvReac See Verified 02/03/15 10:20 Comments minoxidil AdvReac See Verified 02/03/15 10:20 Comments - Meds/Allergy Pre-op Review Medications Reviewed: Yes Allergies Reviewed: Yes Beta Blockers on Current Med List: No Anesthesia Results - Labs 11/28/18 05:36 11/28/18 05:36 - Imaging EKG: report reviewed (sinus rhythm) Anesthesia Exam Selected Entries 11/28/18 08:03 11/28/18 09:48 Temperature 98.6 F Pulse Rate 75 Respiratory Rate 16 Blood Pressure 160/105 Weight: 86 kg BMI 31 NPO (# of Hours): over 8 hours - HEENT Mallampati: I Teeth: Normal Oral Opening: Greater than 3 - Cardiac Rhythm: Regular Murmur: None - Pulmonary Breath Sounds: bilateral Clear Respiratory Effort: Symmetrical Anesthesia Assess/Plan ASA Score: 3 Level of consciousness: Cooperative Anesthetic Plan: MAC Monitoring Plan: Standard Monitors Recovery Plan: Other (Discussed MAC anesthesia, agreed to proceed.)
[2018-11-28] MEDS ORDERED: Lidocaine -MPF 2% 2 ML VIAL ONE (12:41)
[2018-11-28] MEDS ORDERED: *HR* Propofol 200 MG/20 ML VIAL IVP ONE (12:41)
[2018-11-28 12:57] VITALS: BP 166/82
[2018-11-28] MEDS ORDERED: 0.9 % Sodium Chloride 500 ML IVC SCH (13:00)
--- NOTE | 2018-11-28 14:07 | Gastroenterology Progress Note ---
Date of Encounter: 11/28/18 Time of Encounter: 14:04 - Assessment and plan (1) Nausea Current Visit: Yes Status: Acute Assessment and plan: Reports history of nausea ongoing for the past 3 months Was taking 4 tums a day for bloating Nausea was likely secondary to esophageal strictures and hypercalcemia Had EGD today with biopsies taken Dilated esophagus Recommend soft diet Discharge with 20 mg omeprazole CA-19-9 pending follow results with primary care outpatient Thank you for involving GI in her care - Time Spent With Patient Total time spent is greater than 50% in coordination of care (as documented) at patient's floor/unit and/or counseling patient: - Subjective Interval history: Seen and examined today. Her abdominal pain is resolved. No fever, chills, nausea, emesis, shortness of breath or chest pain. - Constitutional Vitals: Temp Pulse Resp BP Pulse Ox 98.6 F 97 18 166/82 93 11/28/18 08:03 11/28/18 12:53 11/28/18 12:53 11/28/18 12:53 11/28/18 12:53 - Head Head exam: Present: atraumatic, normal inspection - Eye Eye exam: Present: EOMI, sclera anicteric - ENT ENT exam: Present: mucous membranes moist, normal oropharynx - Neck Neck exam general surgery: Present: full ROM, trachea midline - Respiratory Respiratory exam: Present: CTAB. Absent: rhonchi, wheezes - Cardiovascular Cardiovascular exam: Present: RRR, +S1, +S2 - GI/Abdominal GI/Abdominal exam: Present: normal bowel sounds, soft. Absent: distended, firm - Skin Skin exam: Present: dry, intact Results - Labs CBC & Chem 7: 11/28/18 05:36 11/28/18 05:36 Labs: Last Result 11/28/18 05:36 Calcium 10.5 H Entire Visit 11/28/18 05:36 Hgb 12.2 Hct 36.1 Consult Discharge Plan - Plan Instructions: Spironolactone (By mouth), Nifedipine (By mouth), Omeprazole (By mouth) Referrals: Vicky Prajapati MD [Primary Care Provider] - 11/30/18 10:45 am Juaquin Bob [Partnered Physician] - 12/18/18 1:30 pm (This appointment is at the [place] [facility]) Prescriptions: NIFEdipine [Nifedipine ER] 90 mg PO Q24H #30 tablet.er Omeprazole 20 mg PO Q24H #30 tab.lily. Spironolactone 100 mg PO Q24H #30 tablet
--- NOTE | 2018-11-28 15:08 | Internal Med Progress Note ---
Hospitalist Progress Note - Encounter Date of Encounter: 11/28/18 Time of Encounter: 15:06 - Subjective Interval History: Patient has improvement in her nausea. EGD today showed dilated esophagus. Biopsies were taken. GI recommending soft diet as well as discharge with 20 mg of omeprazole daily CA-19-9 pending. We will see how patient tolerates diet. Possible discharge later today. - Exam Vitals: Temp Pulse Resp BP Pulse Ox 98.6 F 97 18 166/82 93 11/28/18 08:03 11/28/18 12:53 11/28/18 12:53 11/28/18 12:53 11/28/18 12:53 Exam: General: Ill-appearing and in no acute distress HEENT: No erythema of posterior pharynx. No exudates. Lymphatics: No mandibular or cervical lymphadenopathy Cardiovascular: RRR. No murmurs. No chest wall tenderness. Lungs: Clear to auscelltation bilaterally. Regular chest rise. Abdomen: Non-tender. No rebound or gaurding. Nl bowel sounds. Extremities: No edema. 2+ pulses radial and pedal pulses Skin: No rahses, abrasions, or contusions. Nl cap refill. Psych: Nl attention. A&Ox3 Neuro: cloth trimmer hand II-XII intact. 5/5 strength. Sensation to light touch and pinprick intact. - Assessment and Plan (1) Intractable nausea and vomiting Current Visit: Yes Status: Acute Assessment and Plan: Patient originally presented with upper back pain found to be hypercalcemic with a calcium of 13 now with worsening nausea vomiting that, upon further history, has been present over the last several months. -Patient has multiple comorbidities listed below and nausea could be related any number of them: Most likely medication related as patient had acute nausea event after taking medications on empty stomach Could be related to reversible ischemia evident on stress test but less likely (nausea does not come on on exertion, is at rest) Could be related to hypercalcemia, however, this has largely resolved and n ausea persists May be related to acid reflux. Provided acid blockade with symptom relief EGD showing dilation of esophagus. Biopsies taken. GI recommending soft diet and omeprazole as outpatient. PLAN: - continue omerazole per GI - start soft diet; if patient tolerates, plan to discharge later today - outpatient f/u of biopsies as well as CA 19-9 ordered by GI (2) Hypercalcemia Current Visit: Yes Status: Acute Assessment and Plan: Patient presented with hypercalcemia in the setting of hydrochlorothiazide use. -Resolved with IVF PLAN: - Discontinue hydrochlorothiazide indefinitely (3) Chest pain Current Visit: Yes Status: Acute Assessment and Plan: Reversible ischemia evident on stress test. Cardiology consulted and recommended further workup for this outpatient given multiple active issues cur rently. - Controlled blood pressure - We will start aspirin once creatinine normalizes (4) Gout Current Visit: Yes Status: Acute Assessment and Plan: Claims that she got nauseous after taking probenecid. - We will discontinue for now, will have PCP consider restarting this on an outpatient basis (5) INÉS (acute kidney injury) Current Visit: Yes Status: Resolved Assessment and Plan: Etiology somewhat unclear. May be secondary to hypertensive emergency or poor oral intake over last several days. UA reflex to culture but no growth. -Improved with IVF PLAN: - Trend (6) Hypertensive emergency Current Visit: Yes Status: Resolved Assessment and Plan: Present on admission and started on a nitroglycerin drip. -Complicated by hypercalcemia so cannot use hydrochlorothiazide anymore unfortunately -Patient with many listed allergies and refuses alternatives that we offer her which further complicate management -HR too low to support BB -Opened to trying Spironolactone so this was be started PLAN: - Spironolactone 50mg qd - Nifedipine 50mg qd --> 90mg qd - Losartan 100mg qd - D/c hctz combo pill indefinitely - Time Spent with Patient Total time spent is greater than 50% in coordination of care (as documented) at patient's floor/unit and/or counseling patient: 30 minutes Plan of Care Discussed with: family Internal Medicine: Result - Labs CBC & Chem 7: 11/28/18 05:36 11/28/18 05:36 Labs: Short CBC 11/28/18 Range/Units 05:36 WBC 8.0 (4.3-11.1) K/mcL Hgb 12.2 (11.5-15.4) g/dL Hct 36.1 (35.3-44.9) % Plt Count 249 (140-400) K/mcL BMP 11/28/18 05:36 Sodium 138 Potassium 3.3 L Chloride 103 Carbon Dioxide 27 BUN 15 Creatinine 1.19 Glucose 131 H Calcium 10.5 H Consult Discharge Plan - Plan Instructions: Spironolactone (By mouth), Nifedipine (By mouth), Omeprazole (By mouth) Referrals: Kristofer San MD [Partnered Physician] - Vicky Prajapati MD [Primary Care Provider] - 11/30/18 10:45 am Juaquin Bob [Partnered Physician] - 12/18/18 1:30 pm (This appointment is at the [place] [facility]) Prescriptions: NIFEdipine [Nifedipine ER] 90 mg PO Q24H #30 tablet.er Omeprazole 20 mg PO Q24H #30 tab.rap.dr Spironolactone 100 mg PO Q24H #30 tablet (1) Intractable nausea and vomiting Qualifiers: Vomiting type: cyclical vomiting Qualified Code(s): G43.A1 - Cyclical vomiting, intractable (3) Chest pain Qualifiers: Chest pain type: unspecified Qualified Code(s): R07.9 - Chest pain, unspecified (4) Gout Qualifiers: Gout site: unspecified site Gout etiology: unspecified cause Chronicity: chronic Presence of tophus: without tophus Qualified Code(s): M1A.9XX0 - Chr onic gout, unspecified, without tophus (tophi)
== END 2018-11-28 16:28 | disposition home or self-care (01) | DRG 641 ==
LOC: 3BNU 13:29 → EMEROOARM 13:29 → SUATTDRO 15:44 → 3BNU 16:19 → SUATTDRO 11-24 13:26 → 2NENU 11-25 13:11
PROVIDERS: ADMIT Internal Medicine; ATTEND Family Medicine